=== PATIENT | male | born 1970 | race Caucasian/White ===

== ENCOUNTER 2016-08-13 11:11 | Emergency (ER) | payer OTHER ==
[2016-08-13 11:24] VITALS: BP 136/83
[2016-08-13] MEDS ORDERED: DEPO-MEDROL IM ONE (14:03)
[2016-08-13] MEDS ORDERED: TORADOL IM ONE (14:03)
[2016-08-13] MEDS ORDERED: NORFLEX IM ONE (14:04)
--- NOTE | 2016-08-13 14:09 | PROVIDER DOCUMENTATION ---
HPI-General Adult - General Chief Complaint: Back Pain Stated Complaint: NECK PAIN Time Seen by Provider: 08/13/16 12:44 Source: patient Allergies/Adverse Reactions: Patient Allergies Allergy/AdvReac Type Severity Reaction Status Date / Time Penicillins Allergy HIVES Verified 08/13/16 11:24 - History of Present Illness -Gen Adult Nature of Presenting Problems: Pt. is 45yom that presents with c/o low back pain that shoots down the left buttock and left leg. Pt. reports that the onset was after he picked up a heavy saw and then he had pain. Location of Pain/Injury: reports: back. denies: head, face, mouth, neck, chest , upper extremity, hand(s), abdomen, pelvis, genitalia, lower extremity, feet, upper body, lower body, generalized Pain Radiation: reports: buttocks Quality of Pain: reports: aching, burning. denies: cramping, dull, fullness, indigestion, pressure, sharp, stabbing, tearing, throbbing, tightness Severity: reports: moderate. denies: mild, severe Onset/Duration: reports: abrupt, 5 days ago Timing: reports: still present. denies: improving, gone now, resolved prior to arrival, intermittent, constant, changing over time, getting worse Context/Activities at Onset: reports: none, moderate activity. denies: recent emotional stress, recent physical stress, recent trauma history, possible bad food, cold exposure, out of country travel Modifying Factors: improves with: nothing Associated Symptoms: reports: back/neck pain. denies: anxiety, arm pain, chest pain, constipation, cough, diaphoresis, diarrhea, dizziness, EENT symptoms, fatigue, fever/chills, genitourinary problems, headaches, heartburn, joint pain , loss of appetite, malaise, muscle aches, sinus congestion/drainage, nausea, rash, seizure, shortness of breath, sensory/motor loss, pain with inspiration, swelling/mass in abdomen, syncope, vomiting, weakness, trouble walking Similar Symptoms Previously?: Yes Recently seen or treated by another doctor?: No Review of Systems - Adult - REVIEW OF SYSTEMS - ADULT Constitutional: reports: see HPI. denies: chills, fever, fatique Eyes: reports: see HPI. denies: discharge, blurred vision, double vision Ears, Nose, Mouth & Throat: reports: see HPI. denies: ear discharge, ear pain, sinus problem, nose pain, loose teeth, throat swelling Cardiovascular: reports: see HPI. denies: chest pain, irregular heart rate, orthopnea, syncope Respiratory: reports: see HPI. denies: chronic cough, cough, dyspnea on exertion, pleurisy, shortness of breath, wheezing Gastrointestinal: reports: see HPI. denies: abdominal pain, hematemesis, diarrhea, nausea, vomiting Genitourinary: reports: see HPI. denies: dysuria, discharge, hematuria, hesitency, urgency Musculoskeletal: reports: see HPI, back pain, muscle aches. denies: bone pain, joint pain, joint swelling, neck pain Integumentary: reports: see HPI. denies: hives, hair loss, mole changes, nail changes, rash, skin thickening Neurological: reports: see HPI. denies: ataxia, dizziness/vertigo, headache/ migraines, numbness, paresthesia, seizure, tremors Psychiatric: reports: see HPI. denies: anxiety, depression, emotional problems , insomnia, panic attacks, suicidal thoughts Past History - Adult - PAST MEDICAL HISTORY-ADULT Review of Records: reports: Old Records Reviewed, Nursing Assessment Review, Medications Reviewed, Social history reviewed & non-contributory. Cardiovascular: reports: CAD, CHF, HTN, hyperlipidemia Respiratory: reports: COPD Gastrointestinal: reports: GERD Obstetrical/Gynecological: reports: denies history Genitourinary: reports: kidney stones Neurological: reports: Seizures/Epilepsy Psychiatric: reports: bipolar, psychiatric problems - PRIOR SURGERIES/PROCEDURES Surgical/Procedure History: reports: cardiac stent, other (cardiac stent) - IMMUNIZATION STATUS Childhood Immunizations: UTD Flu Vaccine: See Nurse Assessment - FAMILY HISTORY Family History: reviewed, not pertinent Physical Exam-General - PHYSICAL EXAM-ADULT Initial Vital Signs Reviewed: Yes - CONSTITUTIONAL General Appearance: alert, mild distress, thin. negative: anxious, lethargic, slow to respond, obtunded, combative - EYES Eyes: PERRL/EOMI, pink conjunctivae. negative: conjuctival exudate, pale conjunctivae, scleral icterus, subconjunctival hemorrhage - HEAD, EARS, NOSE, MOUTH & THROAT HENMT: normocephalic/atraumatic, moist mucous membranes. negative: angioedema, pharyngeal erythema, tonsillar exudate, frontal tenderness, maxillary tenderness - NECK Neck: full range of motion, supple, normal inspection, tender lateral. negative : lymphadenopathy, trachial deviation, thyromegaly - RESPIRATORY Respiratory: lungs clear, normal breath sounds. negative: crackles, rales, rhonchi, stridor, wheezing - CARDIOVASCULAR Cardiovascular: normal peripheral pulses, regular rate, rhythm, no edema, no JVD , no murmur. negative: extra beats, friction rub, irregularly irregular - CHEST (BREASTS) Chest/Breast: deferred - GASTROINTESTINAL (ABDOMEN) Abdominal Exam: normal bowel sounds, non tender, soft. negative: distended, guarding, rigid, rebound, tenderness, hernia, mass - GENITOURINARY Male Genitalia: deferred Rectal Exam: deferred Hemoccult Exam: deferred - LYMPHATIC Lymphatic: no adenopathy. negative: axilla node tender, cervical node tenderness - MUSCULOSKELETAL Back Exam: normal inspection, no CVA tenderness, no vertebral tenderness, decreased range of motion, muscle spasm. negative: ecchymosis, swelling, vertebral tenderness Extremity: normal range of motion, non-tender, normal gait, normal inspection. negative: deformity, erythema, inflammation, swelling, tenderness Peripheral Pulses: radial (R): 2+, radial (L): 2+ - SKIN Integumentary: normal color, normal turgor, warm/dry. negative: cyanosis, diaphoresis, ecchymosis, erythema, jaundice, mottled, pallor, petechiae, purpura , rash, swelling, tenderness - NEUROLOGIC Neurologic: grossly normal, no motor/sensory deficits. negative: aphasia, facial droop, focal weakness, motor weakness, sensory deficit - PSYCHIATRIC Psych/Mental Status: normal mood/affect, normal thought content, normal thought process, oriented x 3. negative: anxious, paranoid, tearful Progress - PLAN OF CARE/RESULTS Progress/Plan/Lab Results: Discussed results and plan of care with patient. Patient agrees with plan and verbalizes understanding. Vital Signs Temp Pulse Resp BP Pulse Ox 08/13/16 11:18 98 F 100 H 20 136/83 97 Penicillins Allergy (Verified 08/13/16 11:24) HIVES Aspirin 81 mg PO DAILY #30 chewtab 08/18/13 Carvedilol [Coreg] 3.125 mg PO BID #30 tablet 08/18/13 Fluticasone/Salmet 100/50 INH [Advair 100/50 Diskus] 1 puff INH RTBID #1 inhaler 08/18/13 LISINOpril [Prinivil] 5 mg PO DAILY #30 tablet 08/18/13 Tiotropium [place] Inhaler [Spiriva] 1 puff INH RTDAILY #1 inhaler 08/18/13 Pravastatin Sodium [Pravachol] 80 mg PO HS #30 tablet 11/17/13 Orders Category Date Time Status Ketorolac [Toradol] Med 08/13/16 14:03 Discontinued 60 mg IM NOW ONE Methylprednisolone Acetate [Depo-Medrol] Med 08/13/16 14:03 Discontinued 40 mg IM NOW ONE Orphenadrine [Norflex] Med 08/13/16 14:04 Discontinued 60 mg IM NOW ONE Departure - Departure Time of Disposition Order: 14:10 DIAGNOSIS: Lumbago with sciatica, left side Qualifiers: Chronicity: chronic Back pain laterality: left Qualified Code(s): M54.42 - Lumbago with sciatica, left side; G89.29 - Other chronic pain Disposition: HOME 01 Certified Medical Emergency: Emergent Condition: Stable Additional Instructions: Follow up with primary care physician Take medications as directed Return to ED for any concerns or worsening of symptoms ED Follow Up Instructions: You have been treated by a care provider in the Emergency Department. These instructions are being provided to you so you can have an understanding of how to care for yourself upon discharge. Upon discharge from the Emergency Department, you are responsible for making arrangements for follow-up care by a physician of your choice. Take all prescribed medications as directed. Return to the Emergency Department immediately for any new or worsening symptoms. You may call the Physician Referral phone number at [phone] to obtain a list of Physicians who are taking new patients. Prescriptions: Cyclobenzaprine [Flexeril] 10 mg PO TID #20 tablet Ibuprofen [Motrin] 800 mg PO Q8H PRN PRN #20 tablet PRN Reason: inflammation Omeprazole 20 mg PO DAILY #20 tablet.dr Frost - Physician/ Mid-level Attestation Patient care was provided by Mid-level provider ([employer] TEAM MEMBER/PA):: Yes Mid-level provider:: Jalyn Kathleen Mid-level documentation review:: The Mid-level provider documentation, treatment plan and medical decision making was reviewed by the physician who agrees with all treatment and medical decision making by the MLP.
== END 2016-08-13 14:40 | disposition home or self-care (01) ==
LOC: P.ED 11:11
DX: M54.42 Lumbago with sciatica, left side (principal); M79.1 Myalgia; M79.605 Pain in left leg; I25.10 Atherosclerotic heart disease of native coronary artery without angina pectoris; I10 Essential (primary) hypertension; E78.5 Hyperlipidemia, unspecified; J44.9 Chronic obstructive pulmonary disease, unspecified; Z87.442 Personal history of urinary calculi; Z79.899 Other long term (current) drug therapy; Z95.5 Presence of coronary angioplasty implant and graft; Z79.51 Long term (current) use of inhaled steroids; Z79.82 Long term (current) use of aspirin
CPT/HCPCS: 96372; J1030; J1885; J2360